=== PATIENT | female | born 1965 | race Caucasian/White ===

== ENCOUNTER → 2016-09-28 | Outpatient (REF) | LOC: ZLAB.WCH 10:13 | DX: Z01.89 Encounter for other specified special examinations (principal) ==

== ENCOUNTER → 2016-10-09 | Outpatient (REF) | LOC: ZLAB.WCH 16:25 | DX: Z01.89 Encounter for other specified special examinations (principal) ==

== ENCOUNTER → 2017-10-23 | Outpatient (REF) | LOC: ZLAB.WCH 18:12 | DX: Z01.89 Encounter for other specified special examinations (principal) ==

== ENCOUNTER → 2018-05-15 | Outpatient (REF) | LOC: ZLAB.WCH 14:26 | DX: Z01.89 Encounter for other specified special examinations (principal) ==

== ENCOUNTER → 2018-09-18 | Outpatient (REF) | LOC: ZLAB.WCH 15:14 | DX: Z01.89 Encounter for other specified special examinations (principal) ==

== ENCOUNTER 2019-06-12 07:48 | Day surgery (SDC) | payer BC, OTHER ==
[~2019-06-12] VITALS: Ht 154.9 cm; Wt 102.5 kg
[2019-06-12] VITALS (7 sets, daily range): BP systolic 100–120; BP diastolic 60–78; PULSE 73–85; TEMP 97.1–97.4
[2019-06-12] MEDS ORDERED: ASPIRIN 81M81 MG/TA2 PO (08:18)
[2019-06-12] MEDS ORDERED: TOPROL XL100 MG PO (08:19)
[2019-06-12] MEDS ORDERED: PRINZIDE 25 MG-1 TAB PO (08:20)
--- NOTE | 2019-06-12 09:50 | NUR ---
Initial visit; Patient and her thanked Striper for offering encouragement and prayer prior to her surgical procedure and for wishing her a thorough and rapid healing.
--- NOTE | 2019-06-12 12:37 | NUR ---
Pt [place] [facility] [place] with some mild pain in upper back/rib cage; pt reports that moving from PACU to SDC aggravated pain a little - pain 2-3/10. Pt awake but tired. Mom, [id number], and at bedside. VSS and within normal limits. Ice chips at bedside and lights dimmed for comfort.
--- NOTE | 2019-06-12 12:45 | NUR ---
Pt requesting grape juice and crackers - brought to bedside. Pt's only complaint is minor pain upper left rib cage. Head of bed brought up to help with that discomfort. Patient denies N/V at this time. Call light at bedside and within reach.
--- NOTE | 2019-06-12 13:00 | NUR ---
Pt continues to have some mild pain in left upper rib - pt states it feels like a cramp, and she states that it is worse when moving around. Encouraged patient to move around to encourage any gas to disseminate. Pt eating crackers and drinking grape juice.
--- NOTE | 2019-06-12 13:15 | NUR ---
Pt up to bathroom with successful void. Encouraged patient to deep breathe and pump ankles before standing up. VSS and WNL. at bedside.
--- NOTE | 2019-06-12 13:30 | NUR ---
Pt resting comfortably in bed. at bedside. VSS and WNL.
--- NOTE | 2019-06-12 13:53 | NUR ---
Pt states, "I feel so much better, and I'm ready to go home." Pt meets discharge criteria, and she and her feel comfortable with discharging at this time. VSS and WNL, and patient denies N/V and/or significant pain. She states her upper left quadrant pain feels better and this it has moved down a little.
--- NOTE | 2019-06-12 14:05 | NUR ---
Reviewed all discharge information including medication information/script, when to call the physician, signs/symptoms to watch for, follow up appointment in two weeks, activity restrictions, and basic home care. Pt transported to exit via wheelchair with to personal car. All questions and concerns addressed. Pt expressed gratitude and excitement to go home for recovery.
== END 2019-06-12 14:05 | disposition home or self-care (01) ==
LOC: SDCO 07:48
DX: K80.12 Calculus of gallbladder with acute and chronic cholecystitis without obstruction (principal); Z79.82 Long term (current) use of aspirin; I10 Essential (primary) hypertension; Z80.8 Family history of malignant neoplasm of other organs or systems; F17.210 Nicotine dependence, cigarettes, uncomplicated; E66.01 Morbid (severe) obesity due to excess calories; Z68.41 Body mass index [BMI] 40.0-44.9, adult
CPT/HCPCS: J0690; J1100; J1885; J2270; J2405; J2704; J2710; J3010; J7120

== ENCOUNTER 2020-06-10 10:00 | Day surgery (SDC) | payer BC, OTHER ==
[~2020-06-10] VITALS: Ht 154.9 cm; Wt 104.0 kg
[~2020-06-10 10:00] MED LIST: ASPIRIN 81M81 MG/TA2 PO; PRINZIDE 25 MG-1 TAB PO; TOPROL XL100 MG PO
[2020-06-10 10:51] VITALS: BP 134/94; PULSE 95; TEMP 98.7
[2020-06-10] MEDS ORDERED: XANAX 0.5MG0.5 MG PO (10:51)
[2020-06-10 11:50] VITALS: BP 113/56; PULSE 84; TEMP 97.3
--- NOTE | 2020-06-10 11:50 | NUR ---
Patient brought back to [facility] via cart. Placed on monitors, vital signs stable. Denies pain or nausea. Thad RN at bedside for report. Warm blanket provided. Call kunz within reach. Patient requesting muffin and juice. Will continue to monitor.
[2020-06-10 12:05] VITALS: BP 92/71; PULSE 82
--- NOTE | 2020-06-10 12:05 | NUR ---
Patient tolerating food and drink without difficulty. Fluids infusing into right wrist without difficulty. Will continue to monitor.
[2020-06-10 12:20] VITALS: BP 115/82; PULSE 79
--- NOTE | 2020-06-10 12:20 | NUR ---
Patient texting son to come pick patient up.
[2020-06-10 12:35] VITALS: BP 106/67
--- NOTE | 2020-06-10 12:56 | NUR ---
Discharge teaching completed, verbalized understanding. Taken via wheelchair to private vehicle for dc home with son driving.
[2020-06-10 13:19] VITALS: BP 122/67; PULSE 84
== END 2020-06-10 12:57 | disposition home or self-care (01) ==
LOC: SDCO 10:00
DX: D12.2 Benign neoplasm of ascending colon (principal); R19.7 Diarrhea, unspecified; K62.1 Rectal polyp; E66.01 Morbid (severe) obesity due to excess calories; R73.01 Impaired fasting glucose; D86.9 Sarcoidosis, unspecified; F17.210 Nicotine dependence, cigarettes, uncomplicated; Z90.49 Acquired absence of other specified parts of digestive tract
CPT/HCPCS: J2250; J2405; J3010; J7030

== ENCOUNTER → 2022-02-20 | Outpatient (CLI) | payer OTHER ==
[~2022-02-20] MED LIST changes: +XANAX 0.5MG0.5 MG PO
== END ==
LOC: COL.RAD 14:00
DX: R79.1 Abnormal coagulation profile (principal); R07.9 Chest pain, unspecified
CPT/HCPCS: Q9967

== ENCOUNTER → 2022-02-20 | Outpatient (CLI) | payer OTHER | LOC: COL.VAS 10:38 | DX: R79.1 Abnormal coagulation profile (principal); M79.89 Other specified soft tissue disorders ==